=== PATIENT | male | born 1995 | race Two or more races ===

== ENCOUNTER 2019-10-19 03:59 | Emergency (ER) | payer OTHER, SELFPAY ==
--- NOTE | ~2019-10-19 | XR_ITS ---
EXAMINATION: XR chest-chest tube insert/pos INDICATION: Right chest tube insertion TECHNIQUE: Portable AP chest at 0509 hours COMPARISON: 0414 hours FINDINGS: A right-sided chest tube has been insertion which projects in expected position. The previo usly described right pneumothorax is no longer evident. The lungs are free of acute opacities. There is no pleural effusion. The cardiomediastinal silhouette is normal. IMPRESSION: 1. Right chest tube in expected position with resolution of previously described right pneumothorax. Reviewed, dictated and finalized at location A. IMPRESSION: 1. Right chest tube in expected position with resolution of previously describe d right pneumothorax.
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
[2019-10-19 04:03] VITALS: BP 133/96; PULSE 96; RESP 16; TEMP 36.6; O2SAT 97
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
[2019-10-19 04:15] VITALS: BP 132/98; PULSE 95; RESP 14; O2SAT 100
[2019-10-19] MEDS: LACTATED RINGERS 1,000 ML 999 ML IV CONT (04:22)
[2019-10-19] MEDS: ONDANSETRON INJ 4 MG/2 ML VIAL IV PUSH (04:22)
[2019-10-19] MEDS: TETANUS,DIPHTHERIA,AC PERTUSSIS ADULT (0.5 ML) BOOSTRIX IM (04:26)
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
[2019-10-19 05:04] VITALS: BP 133/82; PULSE 101; RESP 20; O2SAT 100
== END 2019-10-19 05:16 | disposition short-term general hospital (02) ==
PROVIDERS: Emergency Provider General Practice; PCP Internal Medicine Gastroenterology
DX: S27.0XXA Traumatic pneumothorax, initial encounter (principal); S21.111A Laceration without foreign body of right front wall of thorax without penetration into thoracic cavity, initial encounter; Z23 Encounter for immunization; X99.1XXA Assault by knife, initial encounter
CPT/HCPCS: 32551; 71045; 90471; 90715; 96361; 96365; 96375; 99291; J0690; J2405; J3010; J7030; J7120

== ENCOUNTER 2021-05-27 16:00 | Emergency (ER) | payer OTHER, SELFPAY ==
[2021-05-27 16:01] VITALS: BP 140/92; PULSE 88; RESP 18; TEMP 36.4; O2SAT 97
--- NOTE | 2021-05-27 16:07 | ED.MALEGU ---
HPI - Male Genitourinary General Chief complaint: Urogenital-Male Stated complaint: STD check Time Seen by Provider: 05/27/21 16:06 History of Present Illness HPI Narrative: 26-year-old male presented the emergency room with complaints of dysuria and penile discharge for 2 days. Patient states that he has been having unprotected sex with multiple female partners over the last few weeks. Patient denies testicular pain. Denies rashes or ulcers or skin lesions to his penis or testicle area. Denies inguinal lymphadenopathy. Denies fever Related Data Home Medications Medication Instructions Recorded Confirmed calcipotriene TOPICAL DAILY 05/27/21 Allergies Allergy/AdvReac Type Severity Reaction Status Date / Time No Known Allergies Allergy Verified 10/19/19 04:14 Review of Systems Review of Systems: CONSTITUTIONAL: Denies fever, chills, or sweats. EYES: Denies visual changes, redness, or discharge. ENT: Denies rhinorrhea, congestion, sore throat, or otalgia. CARDIOVASCULAR: Denies chest pain, palpitations, or edema. RESPIRATORY: Denies cough or dyspnea. GASTROINTESTINAL: Denies abdominal pain, nausea, vomiting, or diarrhea. GENITOURINARY: Reports dysuria SKIN: Denies rash or itching. MUSCULOSKELETAL: Denies back pain, joint pain, or myalgia. NEUROLOGIC: Denies headache, numbness, dizziness, or weakness. PSYCHIATRIC: Denies anxiety or depression. PMFSH Past Medical History Medical History Patient denies medical problems Surgical History Surgical History No significant past surgical history Social History Social History Alcohol intake: current Substance use: never Gender identity (if verbalized by the patient): Male Exam Narrative: GENERAL: Well-appearing, well-nourished, and in no acute distress. HEAD: Normocephalic, atraumatic. EYES: PERRLA and EOMI. CHEST: Clear to auscultation. No respiratory distress. No wheezes rales or rhonchi HEART: Regular rate and rhythm. No murmur heard. Normal peripheral pulses. ABDOMEN: Soft, nontender, nondistended, normal active bowel sounds. EXTREMITIES: Normal range of motion. No edema. SKIN: Warm, dry, no rash. NEURO: No focal deficits. Alert and oriented x3. PSYCH: Normal mood and affect. Course Vital Signs Vital signs: Vital Signs Temperature 36.4 C L 05/27/21 16:01 Pulse Rate 88 05/27/21 16:01 Respiratory Rate 18 05/27/21 16:01 Blood Pressure 140/92 H 05/27/21 16:01 Pulse Oximetry 97 05/27/21 16:01 Temperature 36.4 C L 05/27/21 16:01 Pulse Rate 88 05/27/21 16:01 Respiratory Rate 18 05/27/21 16:01 Blood Pressure 140/92 H 05/27/21 16:01 Pulse Oximetry 97 05/27/21 16:01 MDM - Male Genitourinary MDM Narrative Medical decision making narrative: 26-year-old male presents emergency room complaints of dysuria and penile discharge. UA shows a urinary tract infection. Given patient's history and presenting complaint we will also treat for possible STI. Differential Diagnosis Differential diagnosis: Likely urinary tract infection Medical Records Attestation: I reviewed the patient's medical records. Lab Data Attestation: I reviewed the patient's lab results. Labs: Lab Results 05/27/21 Range/Units 16:19 Urine Color Yellow (Yellow) Urine Appearance Cloudy H (Clear) Urine pH 6.5 (5.0-9.0) Ur Specific [place] 1.025 (1.001-1.035) Urine Protein 2+ H (Negative) mg/dL Urine Glucose (UA) Negative (Negative) mg/dL Urine Ketones Negative (Negative) mg/dL Ur Blood (Man) 2+ H (Negative) Urine Nitrate Positive H (Negative) Urine Bilirubin 1+ H (Negative) Urine Urobilinogen 0.2 (<2.0) mg/dL Leukocyte Esterase Rfl 2+ H (Negative) KATERYNA/UL Discharge Plan Discharge Clinical Impression: High risk heterosexual behavior, D
[2021-05-27 16:30] LABS: Appearance Urine Cloudy (Clear); Bilirubin Urine 1+ (Negative); Blood Urine 2+ (Negative); Color Urine Yellow (Yellow); Glucose Urine UA Negative (Negative); Ketones Urine Negative (Negative); Leukocyte Esterase Ur 2+ LEU/UL (Negative); Nitrate Urine Positive (Negative); Protein Urine 2+ mg/dL (Negative); Specific Grav Ur 1.025 (1.001-1.035); Urobilinogen Urine 0.2 mg/dL (<2.0); pH Urine 6.5 (5.0-9.0)
[2021-05-27 16:41] LABS: Mucus Urine Moderate /lpf; RBC Urine 21-50 /hpf (0-2); WBC Urine >75 /hpf
[2021-05-27 16:48] LABS: Add Urine Microscopic? YES
[2021-05-27] MEDS: cefTRIAXone 1 GM VIAL IM (16:58)
[2021-05-27] MEDS: WATER, STERILE FOR INJECTION 10 ML VIAL XX (16:59)
--- NOTE | 2021-05-27 17:24 | PC.NURSE ---
Lab contacted regarding STD urine testing. Suman in Lab communicated that it would be added on to urine already in lab.
== END 2021-05-27 17:05 | disposition home or self-care (01) ==
PROVIDERS: Emergency Provider Nurse Practitioner Family; PCP Internal Medicine Gastroenterology
DX: N30.00 Acute cystitis without hematuria (principal); R30.0 Dysuria; Z72.51 High risk heterosexual behavior
CPT/HCPCS: 81001; 87086; 87491; 87591; 96372; 99283; J0696

== ENCOUNTER 2022-06-18 22:14 | Emergency (ER) | payer OTHER, SELFPAY ==
--- NOTE | ~2022-06-18 | CT_ITS ---
EXAMINATION: CT abdomen pelvis w con DATE: 06/19/2022 00:21 INDICATION: Abdominal pain. Nausea and vomiting. TECHNIQUE: Computed tomography (CT) of the abdomen and pelvis was performed with 100 mL Omnipaque 350 intravenous contrast. Automated exposure control and iterative reconstruction technique were employe d. The dose-length product was 426.00 mGy-cm. COMPARISON: None. FINDINGS: The visualized portions of the lung bases are clear without pneumonia or pleural effusion. The heart size is normal. No pericardial effusion. There is diffuse hepatic steatosis. The gallbladde r, spleen, pancreas, adrenal glands, and kidneys are normal. There are no dilated loops of bowel. The appendix is normal. There are no pathologically enlarged lymph nodes. There is no free intraperitone al fluid. The bones are unremarkable. IMPRESSION: 1. Diffuse hepatic steatosis. Reviewed, dictated and finalized at location A.
--- NOTE | ~2022-06-18 | XR_ITS ---
EXAMINATION: XR abdomen NG/feed tube insert DATE: 06/19/2022 01:12 INDICATION: Nasogastric tube placement. TECHNIQUE: An upright view of the abdomen was obtained. COMPARISON: CT abdomen and pelvis 06/19/2022 FINDINGS: The lower abdomen is excluded. There are no dilated loops of bowel. The nasogastric tube ti p is in the stomach. IMPRESSION: 1. Nasogastric tube tip in the stomach. Reviewed, dictated and finalized at location A.
[2022-06-18 22:27] VITALS: BP 148/91; PULSE 98; RESP 18; TEMP 36.6; O2SAT 100
[2022-06-18 22:51] LABS: Basophils Absolute Auto 0.1 K/mm3 (0.0-0.1); Basophils Percent Auto 0.4 % (0.2-1.2); Eosinophils Percent Auto 0.1 % (0-4.4); Hematocrit 48.9 % (42.0-52.0); Hemoglobin 16.5 g/dL (14.0-18.0); Immature Granulocyte Absolute 0.05 K/mm3 (0.00-0.031); Immature Granulocyte Percent A 0.4 % (0-0.5); Immature Platelet Fraction Pct 3.4 % (0.9-11.2); Lymphocytes Absolute Auto 1.04 K/mm3 (0.9-3.2); Mean Corpuscular HGB Conc 33.7 g/dl (32-36); Mean Corpuscular Hemoglobin 31.8 pg (26-34); Mean Corpuscular Volume 94.2 fl (80-100); Mean Platelet Volume 9.8 fl (7.4-10.4); Monocytes Absolute Auto 0.4 K/mm3 (0.1-0.6); Monocytes Percent Auto 3.6 % (2.6-8.5); Neutrophils Absolute Auto 9.9 K/mm3 (1.3-6.7); Neutrophils Percent Auto 86.5 % (45.5-73.1); Platelet Count Result 285 k/mm3 (150-375); Red Blood Count 5.19 M/mm3 (4.6-6.20); Red Cell Distribution Width 12.9 % (11.5-14.5); White Blood Count 11.5 K/mm3 (4.5-10.0)
[2022-06-18] MEDS: ONDANSETRON INJ 4 MG/2 ML VIAL IV PUSH (23:21)
[2022-06-18] MEDS: SODIUM CHLORIDE 0.9% IV 1,000 ML 999 ML IV CONT (23:21)
--- NOTE | 2022-06-18 23:32 | ED.GENADULT ---
HPI - General Adult General Chief complaint: Nausea/Vomiting/Diarrhea Stated complaint: vomiting Time Seen by Provider: 06/18/22 22:57 History of Present Illness HPI narrative: Patient was of-year-old gentleman who presents the emergency department with chief complaint of nausea vomiting abdominal pain and vomiting blood. The patient reports that he has been having discomfort throughout his abdomen today and reports that he started vomiting and reports that there was bright red blood whenever he vomited. Patient reports that he does drink a lot and drinks about a pint a day of alcohol. Patient reports that he is not having any lightheadedness denies trauma denies blood in his stool or black tarry stool. Related Data Home Medications Medication Instructions Recorded Confirmed calcipotriene 0.005 % topical topical DAILY 05/27/21 ointment Allergies Allergy/AdvReac Type Severity Reaction Status Date / Time No Known Allergies Allergy Verified 06/18/22 22:53 Review of Systems Review of Systems: A 10 system review of systems was completed on the patient and is negative except for what is stated in the HPI. Nursing and ancillary documentation was reviewed. [facility] Past Medical History Medical History Patient denies medical problems Surgical History Surgical History No significant past surgical history Social History Social History Alcohol intake: current Substance use: never Gender identity (if verbalized by the patient): Male Exam Narrative: GENERAL: Well-appearing, well-nourished, and in no acute distress. HEAD: Normocephalic, atraumatic. EYES: PERRLA and EOMI. ENT: Nares clear, no rhinorrhea or epistaxis. Mucous membranes moist. NECK: Supple. CHEST: Clear to auscultation. No respiratory distress. HEART: Regular rate and rhythm. No murmur heard. Normal peripheral pulses. ABDOMEN: Soft, minimally tender to palpation, nondistended, normal active bowel sounds. : Guaiac negative stool EXTREMITIES: Normal range of motion. No edema. SKIN: Warm, dry, no rash. NEURO: No focal deficits. Alert and oriented x3. PSYCH: Normal mood and affect. Course Vital Signs Vital signs: Vital Signs Temperature 36.6 C 06/18/22 22:27 Pulse Rate 98 06/18/22 22:27 Respiratory Rate 18 06/18/22 22:27 Blood Pressure 148/91 H 06/18/22 22:27 Pulse Oximetry 100 06/18/22 22:27 Oxygen Delivery Room Air 06/18/22 22:27 Temperature 36.6 C 06/18/22 22:27 Pulse Rate 98 06/18/22 22:27 Respiratory Rate 18 06/18/22 22:27 Blood Pressure 148/91 H 06/18/22 22:27 Pulse Oximetry 100 06/18/22 22:27 Oxygen Delivery Room Air 06/18/22 22:27 Medical Decision Making MDM Narrative Medical decision making narrative: Differential diagnosis includes gastroenteritis, gastritis, upper GI bleed, ileus, viral syndrome Patient was guaiac negative rectal exam NG lavage showed no evidence of active hemorrhage Laboratory studies showed a normal white blood cell count with a WBC count of 11.5 hemoglobin of 16.5 electrolytes showed a CO2 of 19 creatinine was 1.2 lactic acid is elevated at 4.0. Liver enzymes are slightly elevated. Patient received 2 L normal saline boluses in the emergency department And a repeat lactate is decreased to 3 after receiving [address] scan of the abdomen pelvis showed evidence of hepatic stent 1.8 cm irregular contour could be atypical lobulation or small mass. Vital Signs Vital Signs: Vital Signs Temperature 36.6 C 06/18/22 22:27 Pulse Rate 98 06/18/22 22:27 Respiratory Rate 18 06/18/22 22:27 Blood Pressure 148/91 H 06/18/22 22:27 Pulse Oximetry 100 06/18/22 22:27 Oxygen Delivery Room Air 06/18/22 22:27 Temperature 36.6 C 06/18
[2022-06-18 23:59] LABS: Alanine Aminotransferase 66 U/L (6-50); Albumin Level 5.5 g/dL (3.5-5.1); Alkaline Phosphatase 87 U/L (38-126); Anion Gap 20 mmol/L (8-16); Aspartate Amino Transferase 60 U/L (17-59); Bilirubin,Total 0.8 mg/dL (0.2-1.3); Blood Urea Nitrogen 15 mg/dL (9-20); Calcium 9.4 mg/dL (8.4-10.2); Carbon Dioxide 19 mmol/L (22-30); Chloride 99 mmol/L (98-107); Estimated CRCL calculation 77 ml/min; Estimated Glomerular Filt Rate > 60; Glucose 78 mg/dL (65-110); Lipase 46 U/L (23-300); Magnesium 1.9 mg/dL (1.6-2.3); Potassium 4.1 mmol/L (3.4-5.0); Sodium 138 mmol/L (137-145)
[2022-06-19] LABS: Ethanol 98 mg/dL (<10)
[2022-06-19 00:30] LABS: INR 0.9; Prothrombin Time 13.1 Seconds (11.1-14.7)
[2022-06-19 00:31] LABS: Partial Thromboplastin Time 24.7 SECONDS (22.3-36.8)
[2022-06-19 02:34] LABS: Appearance Urine Clear (Clear); Bilirubin Urine Negative (Negative); Blood Urine Negative (Negative); Color Urine Yellow (Yellow); Glucose Urine UA Negative (Negative); Ketones Urine 3+ mg/dL (Negative); Leukocyte Esterase Ur Negative LEU/UL (Negative); Nitrate Urine Negative (Negative); Protein Urine Negative (Negative); Urobilinogen Urine 0.2 mg/dL (<2.0)
[2022-06-19] MEDS: SODIUM CHLORIDE 0.9% IV 1,000 ML 999 ML IV CONT (02:38)
[2022-06-19 02:40] LABS: Add Urine Microscopic? YES; Specific Grav Ur 1.076 (1.001-1.035)
[2022-06-19 02:41] LABS: RBC Urine 0-2 /hpf (0-2); WBC Urine 0-3 /hpf
[2022-06-19 02:43] LABS: Lactic Acid Reflex 3.1 mmol/L (0.7-2.0)
[2022-06-19 03:08] LABS: Reflex Lactic Acid Yes or No Add Lactic
[2022-06-19 03:56] VITALS: BP 139/64; PULSE 79; RESP 17; O2SAT 98
== END 2022-06-19 04:00 | disposition home or self-care (01) ==
PROVIDERS: Emergency Provider Emergency Medicine; PCP Internal Medicine Gastroenterology
DX: K29.00 Acute gastritis without bleeding (principal); E86.0 Dehydration
CPT/HCPCS: 36415; 74177; 80053; 80307; 81001; 83605; 83690; 83735; 85025; 85055; 85610; 85730; 96361; 96374; 99284; J2405; J7030; Q9967